=== PATIENT | female | born 1970 | race Asian ===

== ENCOUNTER 2016-12-28 04:32 | Emergency (ER) | payer MEDICAID ==
[~2016-12-28] VITALS: Ht 165.1 cm; Wt 113.4 kg
[2016-12-28] MEDS ORDERED: diphenhdrAMINE HCL 50 MG/1 ML VL IV ONE (05:00)
[2016-12-28] MEDS ORDERED: EPINEPHrine HCL 1 MG/1 ML AMP SC ONE ×2 (05:00→07:15)
[2016-12-28] MEDS ORDERED: methylPREDNISolone SOD SUCC 125 MG/2 ML VL IV ONE (05:00)
[2016-12-28 08:02] VITALS: BP 142/79
== END 2016-12-28 08:34 | disposition home or self-care (01) ==
LOC: ER 04:33
DX: T78.40XA Allergy, unspecified, initial encounter (principal); I10 Essential (primary) hypertension; E03.9 Hypothyroidism, unspecified
CPT/HCPCS: 96372; 96374; 96375; 99284; J0171; J1200; J2930